=== PATIENT | female | born 1990 | race Caucasian/White ===

== ENCOUNTER 2024-11-02 14:38 | Inpatient (IN) | payer OTHER, SELFPAY ==
[2024-11-02 15:05] VITALS: BP 122/82; BMI 23.6
[2024-11-02] MEDS: PENICILLIN 110 UNITS IV (16:04)
[2024-11-02] MEDS: LR 1000 IV ×2 (16:04→19:24)
[2024-11-02 16:24] LABS: % Basophils 0.7 % (0-2); % Eosinophils 0.5 % (0-6); % Immature Granulocytes 0.3 % (0-0.5); % Monocytes 6.8 % (1.7-9.3); % Neutrophils 78.7 % (42.2-75.2); Absolute Basophils 0.1 10^3/uL (0-0.2); Absolute Eosinophils 0.1 10^3/uL (0-0.7); Absolute Lymphocytes 1.5 10^3/uL (1.2-3.4); Absolute Monocytes 0.8 10^3/uL (0.1-0.6); Absolute Neutrophils 9.1 10^3/uL (1.4-6.5); Hematocrit 41.2 % (37.0-47.0); Hemoglobin 13.9 g/dL (12.0-16.0); Mean Corp Hgb Conc. 33.7 g/dL (33.0-37.0); Mean Corpuscular Hgb 28.2 pg (27.0-31.0); Mean Corpuscular Volume 83.6 fL (81.0-99.0); Mean Platelet Volume 11.8 fL (7.4-10.4); Nucleated Red Blood Cells % 0 %; Platelet Count 211 10^3/uL (130-400); Red Blood Cell Count 4.93 10^6/uL (4.20-5.40); Red Cell Dist. Width 13.2 % (11.5-14.5); White Blood Cell Count 11.6 10^3/uL (4.8-10.8)
[2024-11-02 18:38] LABS: APTT 24.6 Sec (23.4-35.0); INR 0.91; PT 12.7 Sec (11.4-14.6)
[2024-11-02] MEDS: FENTANYL/BUPIVACAINE 100 EPIDURAL (19:02)
[2024-11-02] MEDS: SUBLIMAZE 100 MCG EPIDURAL (19:02)
[2024-11-02] MEDS: PENICILLIN 55 UNITS IV ×2 (19:38→23:44)
[2024-11-02] MEDS: PITOCIN 30 UNITS/NSS 500 ML IV (21:35)
[2024-11-03] MEDS: LR 1000 IV ×2 (01:05→04:19)
[2024-11-03] MEDS: TUMS CHEWABLE TABLET 400 MG PO (02:04)
[2024-11-03] MEDS: PENICILLIN 55 UNITS IV (03:55)
[2024-11-03] MEDS: FENTANYL/BUPIVACAINE 100 EPIDURAL (03:55)
[2024-11-03] MEDS: MOTRIN 600 MG PO ×3 (07:58→22:35)
[2024-11-03] MEDS: PRENATAL PLUS 1 TABLET PO (07:58)
[2024-11-03] MEDS: TYLENOL 650 MG PO (20:00)
[2024-11-04] MEDS: MOTRIN 600 MG PO ×3 (05:05→23:58)
[2024-11-04 05:55] LABS: Hematocrit 31.9 % (37.0-47.0); Hemoglobin 10.8 g/dL (12.0-16.0)
[2024-11-04] MEDS: PRENATAL PLUS 1 TABLET PO (09:10)
[2024-11-04 16:37] LABS: Syphilis/T. pallidum Ab Reflex Negative (Negative)
[2024-11-04] MEDS: TYLENOL 650 MG PO (20:14)
[2024-11-05] MEDS: PRENATAL PLUS 1 TABLET PO (07:58)
== END 2024-11-05 11:24 | disposition home or self-care (01) | DRG 807 ==
LOC: LDRP 14:38
PROVIDERS: ADMITTING PHYSICIAN Obstetrics & Gynecology
PROC: 4A1HXCZ Monitoring of Products of Conception, Cardiac Rate, External Approach (ICD-10-PCS; 2024-11-03)
PROC: 0KQM0ZZ Repair Perineum Muscle, Open Approach (ICD-10-PCS; 2024-11-03)
PROC: 10907ZC Drainage of Amniotic Fluid, Therapeutic from Products of Conception, Via Natural or Artificial Opening (ICD-10-PCS; 2024-11-03)
PROC: 0W8NXZZ Division of Female Perineum, External Approach (ICD-10-PCS; 2024-11-03)
PROC: 10D07Z6 Extraction of Products of Conception, Vacuum, Via Natural or Artificial Opening (ICD-10-PCS; 2024-11-03)
DX: O45.93 Premature separation of placenta, unspecified, third trimester (principal); Z37.0 Single live birth; O69.2XX0 Labor and delivery complicated by other cord entanglement, with compression, not applicable or unspecified; Z3A.38 38 weeks gestation of pregnancy; O70.1 Second degree perineal laceration during delivery; O76 Abnormality in fetal heart rate and rhythm complicating labor and delivery; O99.824 Streptococcus B carrier state complicating childbirth; Z85.828 Personal history of other malignant neoplasm of skin
CPT/HCPCS: 88307; 85014; 85018; 85025; 85610; 85730; 86780; 86850; 86900; 86901

== ENCOUNTER 2025-02-17 09:01 | Outpatient (RCR) | payer OTHER, SELFPAY | END 2025-02-17 23:59 | disposition home or self-care (01) | LOC: RPT 09:01 | PROVIDERS: ATTENDING PHYSICIAN Obstetrics & Gynecology | DX: M62.89 Other specified disorders of muscle (principal); R32 Unspecified urinary incontinence; N81.6 Rectocele; Z73.6 Limitation of activities due to disability | CPT/HCPCS: 97110; 97112; 97140; 97162; 97530 ==